=== PATIENT | female | born 1990 | race Caucasian/White ===

== ENCOUNTER 2018-03-05 17:44 | Emergency (ER) | payer OTHER ==
[~2018-03-05] VITALS: Ht 165.1 cm; Wt 54.4 kg
[2018-03-05 17:53] VITALS: BP 115/55
--- NOTE | 2018-03-05 17:55 | NUR ---
ARRIVAL PATIENT ARRIVED TO ED6 AMBULATORY, C/O OF DENTAL PAIN FOR THE PAST SEVERAL DAYS, PAIN WORSE TODAY, ATTEMPTED TO TREAT HERSELF AT HOME WITH IBUPROFEN, NO RELIEF, CAME TO THE ED FOR FURTHER EVAL.
[2018-03-05] MEDS ORDERED: ROCEPHIN IM IM STA (18:08)
[2018-03-05] MEDS ORDERED: LIDOCAINE 1% VIAL ONE (18:25)
[2018-03-05] MEDS ORDERED: ROCEPHIN ONE (18:25)
[2018-03-05] MEDS ORDERED: LIDOCAINE 1% VIAL SQ PRN (18:30)
--- NOTE | 2018-03-05 18:35 | NUR ---
LIDOCAINE: LIDOCAINE ADMINISTERED BY DR. BARBOZA.
--- NOTE | 2018-03-05 18:35 | ER.PDOC ---
General Chief Complaint: Toothache Stated Complaint: DENTAL ABSCESS Time seen by MD: 18:21 Source: patient Exam Limitations: no limitations History of Present Illness Initial Comments PT HAS HAD FRACTURED TEETH 4,5,6, FOR A LONG TIME, NOW HAS DEVELOPED PAIN AND SWELLING SUGGESTIVE OF GINGIVITIS Timing/Duration: gradual Context: fractured tooth Associated Symptoms: mild sore throat, jaw pain (R) Severity: mild Worsen By: nothing Allergies: Coded Allergies: No Known Allergies (Unverified , 03/05/18) Home Meds No Active Prescriptions or Reported Meds Past Medical History Medical History: no pertinent history Surgical History: no surgical history Social History Smoking: cigarettes Alcohol Use: none Drug Use: none Constitutional: no symptoms reported Eyes: no symptoms reported Ears: no symptoms reported Mouth: see HPI, pain, swelling (RIGHT UPPER TEETH) Throat: see HPI, pain Respiratory: no symptoms reported Cardiovascular: no symptoms reported Gastrointestinal: no symptoms reported Musculoskeletal: no symptoms reported Skin: no symptoms reported Neurological: no symptoms reported Physical Exam General Appearance: mild distress Head/Neck: neck nml inspection, trachea midline, (R) maxillary swelling, cervical lymphadenopathy (RIGHT SUBMANDIBULAR) Eyes: eyes nml inspection, PERRL Mouth: dental tenderness, gum swelling, widespread dental decay Throat: pharynx nml Respiratory: no resp. distress, lungs clear CVS: reg. rate & rhythm, heart sounds nml NEURO/PSYCH: oriented X3, mood/effect nml Additional Procedures Progress INFRAORITL NERVE BLOCK RIGHT; AFTER VERBAL CONSENT ONE ML OF 1%LIDOCAINE W/ EPI WAS INJECTED IN AREA OF THE INFRAORBITAL NERVE. PT REPORTS GOODRELIEF OF SYMPTOMS. Departure Time of Disposition: 18:39 Disposition: 01 HOME, SELF-CARE Impression: Primary Impression: Dental abscess Additional Impression: Fractured tooth Qualified Codes: S02.5XXS - Fracture of tooth (traumatic), sequela Condition: Improved Referrals: PCP,UNKNOWN (PCP) PRIMARY CARE PROVIDER Scripts No Active Prescriptions or Reported Meds Comments SEE DENTIST keshav, DISCUSSED POSSIBLE SEQUALAE Duration or Time Spent with Pa: JOSE HILL MD March 05, 2018 18:35
[2018-03-05 18:58] VITALS: BP 115/55
== END 2018-03-05 18:54 | disposition home or self-care (01) ==
LOC: ER 17:44
DX: S02.5XXA Fracture of tooth (traumatic), initial encounter for closed fracture (principal); K04.7 Periapical abscess without sinus; R59.0 Localized enlarged lymph nodes; F17.210 Nicotine dependence, cigarettes, uncomplicated; X58.XXXA Exposure to other specified factors, initial encounter; Y93.89 Activity, other specified; Y92.89 Other specified places as the place of occurrence of the external cause; Y99.8 Other external cause status
CPT/HCPCS: 64400; 96372; 99284; J0696; J2001

== ENCOUNTER 2018-11-15 15:51 | Emergency (ER) | payer OTHER ==
[~2018-11-15] VITALS: Ht 165.1 cm; Wt 54.4 kg
[2018-11-15 16:04] VITALS: BP 136/65
--- NOTE | 2018-11-15 16:05 | NUR ---
ARRIVAL PATIENT ARRIVED TO ED7 AMBULATORY, C/O OF DENTAL PAIN FOR THE PAST FEW DAYS, DID TAKE TYLENOL WITH NO RELIEF, CAME TO THE ED FOR FURTHER EVAL.
[2018-11-15] MEDS ORDERED: ZOFRAN ODT SL STA (16:17)
[2018-11-15] MEDS ORDERED: ZOFRAN ODT ONE (16:18)
--- NOTE | 2018-11-15 16:22 | ER.PDOC ---
General Chief Complaint: Toothache Stated Complaint: TOOTH PAIN Time seen by MD: 16:19 Source: patient Exam Limitations: no limitations History of Present Illness Initial Comments Toothache for past few days. Timing/Duration: gradual Context: fractured tooth Associated Symptoms: toothache Severity: moderate Prior symptoms/Treatment: Similar symptoms previous Allergies: Coded Allergies: Penicillins (Verified Allergy, Unknown, Hives, 11/15/18) Home Meds No Active Prescriptions or Reported Meds Past Medical History Medical History: no pertinent history Surgical History: Social History Smoking: cigarettes Alcohol Use: none Drug Use: none Constitutional: no symptoms reported Mouth: see HPI Throat: no symptoms reported Respiratory: no symptoms reported Cardiovascular: no symptoms reported Gastrointestinal: no symptoms reported Musculoskeletal: no symptoms reported All Other Systems: Reviewed and Negative Physical Exam General Appearance: alert, no distress Head/Neck: head nml inspection, neck nml inspection, trachea midline, no lymphadenopathy, thyroid nml Mouth: dental tenderness, widespread dental decay Throat: pharynx nml, voice nml, no airway problems Ears/Nose: nml inspection Respiratory: no resp. distress, lungs clear CVS: reg. rate & rhythm, heart sounds nml Abdomen: non-tender, no organomegaly Extremities: non-tender, ROM nml Skin Exam: Normal Color, Warm/Dry NEURO/PSYCH: oriented X3, mood/effect nml Departure Time of Disposition: 16:19 Disposition: 01 HOME, SELF-CARE Impression: Primary Impression: Dental infection Condition: Stable Referrals: PCP,UNKNOWN (PCP) PRIMARY CARE PROVIDER Additional Instructions: Clindamycin Diclofenac F/U with your Dentist this week Scripts No Active Prescriptions or Reported Meds Duration or Time Spent with Pa: 30 mins CHARLEE BARNARD MD Nov 15, 2018 16:22
[2018-11-15 16:23] VITALS: BP 136/65
== END 2018-11-15 16:28 | disposition home or self-care (01) ==
LOC: ER 15:51
DX: K04.7 Periapical abscess without sinus (principal); F17.210 Nicotine dependence, cigarettes, uncomplicated; Z88.0 Allergy status to penicillin
CPT/HCPCS: 99283; Q0162

== ENCOUNTER 2019-04-04 16:53 | Emergency (ER) | payer OTHER ==
[~2019-04-04] VITALS: Ht 165.1 cm; Wt 54.4 kg
--- NOTE | 2019-04-04 17:03 | ER.PDOC ---
General Chief Complaint: Requesting Medical Care Stated Complaint: MIGRAINE Time seen by MD: 17:03 Source: patient Exam Limitations: no limitations History of Present Illness Initial Comments Pt started headache yesterday, differs from her previous migraines in that this occipital, most are frontal, some nausea Timing/Duration: 24 hours Severity/Quality: severe, pressure, sharp Prior Headaches/Recent Trauma: no recent headache/trauma Associated Symptoms: nausea/vomiting, sensitivity to light Prior symptoms/Treatment: Similar symptoms previous Allergies: Coded Allergies: Penicillins (Verified Allergy, Unknown, Hives, 11/15/18) Home Meds No Active Prescriptions or Reported Meds Past Medical History Surgical History: Social History Drug Use: none Review of Systems Constitutional: no symptoms reported Eyes: no symptoms reported Ears, Nose, Mouth, Throat: no symptoms reported Respiratory: no symptoms reported Cardiovascular: no symptoms reported Gastrointestinal: no symptoms reported Genitourinary: no symptoms reported Musculoskeletal: no symptoms reported Skin: no symptoms reported Psychiatric/Neurological: see HPI Physical Exam General Appearance: No Apparent Distress, WD/WN Head/Eyes: eyes nml inspection, no facial swelling, no nystagmus, PERRL ENT: nml ENT inspection, pharynx nml Neck: nml inspection, Supple Cardiovascular: Normal Peripheral Pulses, Regular Rate, Rhythm, No Edema, No Gallop, No JVD, No Murmur Respiratory: chest non-tender, lungs clear, normal breath sounds, no respiratory distress, no accessory muscle use Gastrointestinal: Normal Bowel Sounds, No Organomegaly, No Pulsatile Mass, Non Tender, Soft Back: Normal Inspection, No CVA Tenderness, No Vertebral Tenderness Extremities: Normal Range of Motion, Non-Tender, Normal Inspection, No Pedal Edema, No Calf Tenderness, Normal Capillary Refill Psychiatric: Alert, Oriented x 3 Cranial Nerves: Normal Hearing, Normal Speech, PERRL Coordination/Gait: Normal Finger to Nose, Normal Gait Motor/Sensory: No Motor Deficit, No Sensory Deficit, No Pronator Drift, Negative Babinski's Sign Skin: Warm/Dry, Normal Color Lymphatic: No Adenopathy Results/Orders Results/Orders Orders - ANDRY CHU MD Ketorolac Tromethamine (Toradol) (04/04/19 17:30) Promethazine Hcl (Phenergan) (04/04/19 17:06) Ct Head Wo Contrast (04/04/19 17:06) Ketorolac Tromethamine (Toradol) (04/04/19 17:13) Promethazine Hcl (Phenergan) (04/04/19 17:13) Meperidine Hcl/Pf (Demerol) (04/04/19 18:05) Meperidine Hcl/Pf (Demerol) (04/04/19 18:23) Vital Signs Date Time Temp Pulse Resp B/P (MAP) Pulse Ox O2 Delivery O2 Flow Rate FiO2 04/04/19 17:08 98.0 95 14 118/60 (79) 100 Room Air 98.0 04/04/19 17:03 98.0 95 14 100 Room Air 98.0 04/04/19 17:03 98.0 95 14 98.0 Administered Medications Medications (Trade) Dose Ordered Sig/Angus Route PRN Reason Start Time Stop Time Status Last Admin Dose Admin Ketorolac Tromethamine (Toradol) 60 mg OT ONCE IM 04/04/19 17:30 04/04/19 17:31 DC 04/04/19 17:11 60 MG Meperidine HCl (Demerol) 50 mg STAT STAT IM 04/04/19 18:05 04/04/19 18:06 DC 04/04/19 18:26 50 MG Promethazine HCl (Phenergan) 25 mg STAT STAT IM 04/04/19 17:06 04/04/19 17:08 DC 04/04/19 17:13 25 MG Departure Time of Disposition: 18:30 Disposition: 01 HOME, SELF-CARE Impression: Primary Impression: Migraine Condition: Stable Patient Instructions: Migraine Headache, [id number] Referrals: PCP,UNKNOWN (PCP) PRIMARY CARE PROVIDER Scripts No Active Prescriptions or Reported Meds Duration or Time Spent with Pa: 20 ANDRY CHU MD Apr 04, 2019 17:03
[2019-04-04] MEDS ORDERED: PHENERGAN IM STA (17:06)
[2019-04-04 17:08] VITALS: BP 118/60
--- NOTE | 2019-04-04 17:10 | NUR ---
ARRIVAL PT ARRIVED TO ER AMBULATORY WITH COMPLAINT OF MIGRAINE X2 DAYS WITH VOMITTING. PT STATES SHE TOOK SOME XANAX LAST NIGHT FOR TREATMENT WITH NO RELIEF.
[2019-04-04] MEDS ORDERED: TORADOL ONE (17:13)
[2019-04-04] MEDS ORDERED: PHENERGAN ONE (17:13)
[2019-04-04] MEDS ORDERED: TORADOL IM ONE (17:30)
--- NOTE | 2019-04-04 17:41 | DIREP ---
PROCEDURE: CT HEAD BRAIN W/O CONTRAST TECHNIQUE:Contiguous 5.0 mm transaxial sections were obtained from the vertex to skull base without the use of intravenous contrast. COMPARISON:None. INDICATIONS:headache FINDINGS: VENTRICLES:Within normal limits. CEREBRUM:No acute intracranial hemorrhage or mass effect. Hernandez-white matter differentiation within normal limits. CEREBELLUM:Normal. BRAINSTEM:Normal. SKULL:Normal. SINUSES:Well pneumatized. OTHER:Negative. CONCLUSION: 1. No acute intracranial hemorrhage or mass effect. Dictated by: Serjio Núñez MD on 04/04/2019 at 05:40 PM
[2019-04-04] MEDS ORDERED: DEMEROL IM STA (18:05)
[2019-04-04] MEDS ORDERED: DEMEROL ONE (18:23)
[2019-04-04 18:45] VITALS: BP 98/50
[2019-04-04 19:15] VITALS: BP 98/50
== END 2019-04-04 18:56 | disposition home or self-care (01) ==
LOC: ER 16:53
DX: G43.909 Migraine, unspecified, not intractable, without status migrainosus (principal); Z79.899 Other long term (current) drug therapy; Z88.0 Allergy status to penicillin
CPT/HCPCS: 70450; 96372; 99284; J1885; J2175; J2550

== ENCOUNTER 2022-01-09 09:42 | Emergency (ER) | payer OTHER ==
[~2022-01-09] VITALS: Ht 165.1 cm; Wt 74.8 kg
[2022-01-09 09:52] VITALS: BP 132/80
--- NOTE | 2022-01-09 09:58 | NUR ---
ARRIVAL PATIENT ARRIVED TO ED6 AMBULATORY, C/O DENTAL PAIN FOR THE PAST 2 DAYS, ATTEMPTED TO TAKE OVER THE COUNTER PAIN MEDICATIONS WITH MINIMAL RELIEF, CAME TO THE ED FOR EVAL, VITAL SIGNS OBTAINED AND DOCTOR AKIL NOTIFIED OF PATIENT'S ARRIVAL.
[2022-01-09] MEDS ORDERED: TORADOL IM STA (10:18)
[2022-01-09] MEDS ORDERED: TORADOL ONE (10:19)
[2022-01-09 10:23] VITALS: BP 122/78
--- NOTE | 2022-01-09 10:24 | ER.PDOC ---
General Chief Complaint: Toothache Stated Complaint: TOOTHACHE Time seen by MD: 10:19 Source: patient Exam Limitations: no limitations History of Present Illness Initial Comments Tooth ache for 2 days. Timing/Duration: gradual Associated Symptoms: mod sore throat, jaw pain (R) Allergies: Coded Allergies: Penicillins (Verified Allergy, Unknown, Hives, 11/15/18) Home Meds No Active Prescriptions or Reported Meds Past Medical History Medical History: other Surgical History: Family History Significant Family History: no pertinent family hx Social History Smoking: non-smoker Alcohol Use: none Drug Use: none Constitutional: no symptoms reported Mouth: see HPI Respiratory: no symptoms reported Cardiovascular: no symptoms reported Gastrointestinal: no symptoms reported Musculoskeletal: no symptoms reported All Other Systems: Reviewed and Negative Physical Exam General Appearance: alert, no distress Head/Neck: head nml inspection, neck nml inspection, trachea midline, no lymphadenopathy, thyroid nml Mouth: dental tenderness, widespread dental decay (right upper jaw) Throat: pharynx nml, voice nml, no airway problems Respiratory: no resp. distress, lungs clear CVS: reg. rate & rhythm, heart sounds nml Abdomen: non-tender, no organomegaly Extremities: non-tender, ROM nml Skin Exam: Normal Color, Warm/Dry NEURO/PSYCH: oriented X3, mood/effect nml Results/Orders Results/Orders Vital Signs Date Time Temp Pulse Resp B/P (MAP) Pulse Ox O2 Delivery O2 Flow Rate FiO2 01/09/22 09:52 98.1 91 18 98 01/09/22 09:52 98.1 91 18 01/09/22 09:52 98.1 91 18 132/80 (97) 98 Room Air Progress Progress Patient received a Toradol shot. ER DEPART Departure Time of Disposition: 10:23 Disposition: 01 HOME / SELF CARE / HOMELESS Impression: Primary Impression: Infected dental caries Additional Impression: Dental infection Condition: Improved Referrals: PCP,UNKNOWN (PCP) PRIMARY CARE PROVIDER Additional Instructions: Clindamycin Diclofenac Follow-up with your dentist in 2 to 3 days Return to ED if worsening or concerns Scripts No Active Prescriptions or Reported Meds Duration or Time Spent with Pa: 10 min CHARLEE BARNARD MD Jan 09, 2022 10:24
== END 2022-01-09 10:32 | disposition home or self-care (01) ==
LOC: ER 09:42
DX: K04.7 Periapical abscess without sinus (principal); K02.9 Dental caries, unspecified; Z88.0 Allergy status to penicillin
CPT/HCPCS: 96372; 99283; J1885

== ENCOUNTER 2022-01-10 16:07 | Emergency (ER) | payer OTHER ==
[~2022-01-10] VITALS: Ht 165.1 cm; Wt 74.8 kg
[2022-01-10 16:30] VITALS: BP 114/84
[2022-01-10] MEDS ORDERED: LIDOCAINE HCL VISCOUS MM STA (16:31)
[2022-01-10] MEDS ORDERED: TORADOL IV STA (16:31)
[2022-01-10] MEDS ORDERED: MORPHINE SULFATE IV STA (16:31)
[2022-01-10] MEDS ORDERED: CLEOCIN 600 MG-D5W-GALAXY 50 ML IV STA (16:31)
--- NOTE | 2022-01-10 16:48 | ER.PDOC ---
LEO PATEL MD 01/10/22 1648: General Chief Complaint: Skin Rash/Abscess Stated Complaint: MOUTH ABSCESS Time seen by MD: 17:00 Source: patient, family Exam Limitations: no limitations History of Present Illness Initial Comments Painful face and hard palate, history of dental infections, was seen here yesterday and put on clindamycin came in for worsening pain, no feve,r occasional chills Timing/Duration: gradual Context: fractured tooth Associated Symptoms: fever/chills, toothache, facial pain, swollen face, jaw pain (R), jaw pain (L) Severity: moderate Worsen By: nothing Prior symptoms/Treatment: Similar symptoms previous, Recenly Seen, Treated by Doctor Allergies: Coded Allergies: Penicillins (Verified Allergy, Unknown, Hives, 11/15/18) Home Meds No Active Prescriptions or Reported Meds Past Medical History Medical History: other Surgical History: Social History Alcohol Use: none Drug Use: marijuana Reviewed Nursing Reviewed: Vital Signs, Abn. Noted All Other Systems: Reviewed and Negative Physical Exam General Appearance: alert, no distress Head/Neck: neck nml inspection, trachea midline, no lymphadenopathy, thyroid nml, pain on precuss of sinus, (R) maxillary swelling, (L) maxillary swelling 1 - egema, tenderness Eyes: eyes nml inspection, PERRL, no nystagmus Mouth: dental tenderness, gum swelling 1 - tender, edema 1 - swelling Respiratory: no resp. distress, lungs clear CVS: reg. rate & rhythm, heart sounds nml Abdomen: non-tender, no organomegaly Extremities: non-tender, ROM nml Skin Exam: Normal Color, Warm/Dry NEURO/PSYCH: oriented X3, mood/effect nml Results/Orders Results/Orders Orders - LEO PATEL MD Clindamycin Phosphate/D5w (Cleocin 600 M (01/10/22 16:31) Ketorolac Tromethamine (Toradol) (01/10/22 16:31) Lidocaine Hcl (Lidocaine Hcl Viscous) (01/10/22 16:31) 0.9 % Sodium Chloride (Ns 1000ml) (01/10/22 17:00) Morphine Sulfate (Morphine Sulfate) (01/10/22 16:31) Cbc With Auto Diff (01/10/22 16:39) Comprehensive Metabolic Panel (01/10/22 16:39) Blood Culture (01/10/22 16:39) Wound Culture & Gram Stain (01/10/22 16:39) C-Reactive Protein (01/10/22 16:39) Erythrocyte Sedimentation Rate (01/10/22 16:39) 0.9 % Sodium Chloride (Ns 1000ml) (01/10/22 16:50) Ketorolac Tromethamine (Toradol) (01/10/22 16:50) Clindamycin Phosphate/D5w (Cleocin 600 M (01/10/22 16:51) Lidocaine Hcl (Lidocaine Viscous) (01/10/22 16:51) Morphine Sulfate (Morphine Sulfate) (01/10/22 16:51) Hcg Qualitative Serum (01/10/22 17:04) Ct Soft Tissue Neck W Iv Con (01/10/22 17:21) Lidocaine Hcl/Epinephrine (Xylocaine 1%- (01/10/22 17:28) Tetracaine/Benzocaine/Butamben (Cetacain (01/10/22 17:28) Aripiprazole (Abilify) (01/10/22 21:00) Diclofenac Sodium (Voltaren) (01/10/22 17:30) Clindamycin Hcl (Cleocin) (01/10/22 21:00) Bupropion Hcl (Wellbutrin Xl) (01/11/22 09:00) Hydroxyzine (Atarax) (01/10/22 17:21) Vital Signs Date Time Temp Pulse Resp B/P (MAP) Pulse Ox O2 Delivery O2 Flow Rate FiO2 01/10/22 16:30 98.6 90 18 01/10/22 16:30 98.6 90 18 114/84 (94) 100 Room Air 01/10/22 16:30 98.6 90 18 100 Administered Medications Medications (Trade) Dose Ordered Sig/Angus Route PRN Reason Start Time Stop Time Status Last Admin Dose Admin Clindamycin Phosphate 50 ml @ 50 mls/hr Q8 STAT IV 01/10/22 16:31 01/10/22 17:30 DC 01/10/22 16:57 50 MLS/HR Ketorolac Tromethamine (Toradol) 30 mg STAT STAT IV 01/10/22 16:31 01/10/22 16:38 DC 01/10/22 16:57 30 MG Lidocaine HCl (Lidocaine HCl Viscous) 15 ml STAT STAT MM 01/10/22 16:31 01/10/22 16:38 DC 01/10/22 16:58 15 ML Morphine Sulfate (Morphine Sulfate) 2 mg STAT STAT IV 01/10/22 16:31 01/10/22 16:38 DC 01/10/22 16:58 2 MG Sodium Chloride 1,000 ml @ 0 mls/hr Q0M ONCE IV 01/10/22 17:00 01/10/22 17:01 DC 01/10/22 16:57 100 MLS/HR Laboratory Tests Test 01/10/22 16:45 White Blood Count 11.8 10^3/uL (4.5-11.0) H Red Blood Count 4.35 10^6/uL (4.00-5.20) Hemoglobin 12.6 g/dL (12.0-15.0) Hematocrit 39.3 % (36.0-46.0) Mean Corpuscular Volume 90.3 fL (78-100) Mean Corpuscular Hemoglobin 29.0 pg (26-34) Mean Corpuscular Hemoglobin Concent 32.1 g/dL (33-36.5) L Red Cell Distribution Width 15.9 % (11.5-14.5) H Platelet Count 286 10^3/uL (150-400) Mean Platelet Volume 8.6 fL (7.8-11.0) Neutrophils (%) (Auto) 62.6 % (41.0-85.0) Lymphocytes (%) (Auto) 23.1 % (24.0-44.0) L Monocytes (%) (Auto) 11.3 % (5.0-12.0) Neutrophils # (Auto) 7.4 10^3/uL (1.8-7.7) Lymphocytes # (Auto) 2.72 10^3/uL1 (1.0-4.8) Monocytes # (Auto) 1.3 10^3/uL (0.3-0.8) H Absolute Immature Granulocyte (auto 0.01 10^3 u/L (0-2) Absolute Eosinophils (auto) 0.3 10^3/uL (0.0-0.2) H Immature Granulocytes % 0.10 % (0.00-0.50) Eosinophils % 2.4 % (0.0-5.0) Basophils % 0.5 % (0.0-0.2) H Basophils # 0.1 10^3/uL (0.0-0.1) Erythrocyte Sedimentation Rate 27 mm/hr (0-20) H Sodium Level 136 mmol/L (132-145) Potassium Level 3.8 mmol/L (3.6-5.2) Chloride Level 101.0 mmol/L (96-109) Carbon Dioxide Level 25.5 mmol/L (20.0-32) Anion Gap 13.3 Blood Urea Nitrogen 13 mg/dL (7-18) Creatinine 0.97 mg/dL (0.59-1.40) Estimated GFR () 81.0 (>/=60) Est GFR (CKD-EPI)(Non-Afr Cambodian) 67.0 (>/=60) BUN/Creatinine Ratio 13.0 Glucose Level 101 mg/dL (70-110) Calcium Level 8.9 mg/dL (8.4-10.5) Total Bilirubin 0.5 mg/dL (0.2-1.0) Aspartate Amino Transferase (AST) 18 U/L (0-35) Alanine Aminotransferase (ALT) 31 U/L (12-78) Alkaline Phosphatase 92 U/L (50-136) C-Reactive Protein 10.94 mg/dL (0.00-5.00) H Total Protein 7.8 g/dL (6.4-8.2) Albumin 3.6 g/dL (3.4-5.0) Globulin 4.2 Albumin/Globulin Ratio 0.857 Serum HCG, Qualitative NEGATIVE (NEGATIVE) Progress Progress TO DR BARNARD ER DEPART Departure Disposition: 02 SHORT TERM HOSPITAL Impression: Primary Impression: Abscess, dental Additional Impression: Facial cellulitis Condition: Stable Referrals: PCP,UNKNOWN (PCP) PRIMARY CARE PROVIDER Scripts No Active Prescriptions or Reported Meds CHARLEE BARNARD MD 01/10/22 6048: General Chief Complaint: Skin Rash/Abscess Stated Complaint: MOUTH ABSCESS Time seen by : 19:00 Source: patient Exam Limitations: no limitations History of Present Illness Initial Comments Worsening dental infection and right facial swelling. Patient was seen here yesterday for dental caries with infection. No fever or chills. She was sent home on clindamycin. Timing/Duration: yesterday Associated Symptoms: toothache, swollen face (right) Severity: moderate Prior symptoms/Treatment: Similar symptoms previous, Recenly Seen, Treated by Doctor Allergies: Coded Allergies: Penicillins (Verified Allergy, Unknown, Hives, 11/15/18) Home Meds No Active Prescriptions or Reported Meds Past Medical History Medical History: no pertinent history Surgical History: no surgical history Family History Significant Family History: no pertinent family hx Social History Smoking: non-smoker Alcohol Use: none Drug Use: marijuana Constitutional: no symptoms reported Mouth: see HPI Respiratory: no symptoms reported Cardiovascular: no symptoms reported Gastrointestinal: no symptoms reported Musculoskeletal: no symptoms reported All Other Systems: Reviewed and Negative Physical Exam General Appearance: alert, no distress Head/Neck: head nml inspection, neck nml inspection, trachea midline, no lymphadenopathy, thyroid nml Mouth: dental tenderness (right upper molar with facial swelling and pus draning into the mouth), gum swelling Throat: pharynx nml, voice nml, no airway problems Respiratory: no resp. distress, lungs clear CVS: reg. rate & rhythm, heart sounds nml Abdomen: non-tender, no organomegaly Extremities: non-tender, ROM nml Skin Exam: Normal Color, Warm/Dry NEURO/PSYCH: oriented X3, mood/effect nml Progress Progress CT: Soft tissue thickening along the right paramedian aspect of the anterior hard palate may reflect potential abscess in the appropriate clinical setting. 2. Asymmetric prominence of the right tonsillar soft tissues with tiny foci of gas within the peritonsillar soft tissues are of indeterminate etiology as no discrete fluid component is identified to suggest peritonsillar abscess. 3. Additional findings as discussed above. Patient received clindamycin and meropenem. Talked to Dr. Hawthorne who is the hospitalist on admitting patient here but he is not comfortable since patient will need the services of ENT, patient transferred to [facility]. ER DEPART Departure Time of Disposition: 22:17 Disposition: 02 SHORT TERM HOSPITAL Impression: Primary Impression: Abscess, dental Additional Impression: Facial cellulitis Condition: Stable Referrals: PCP,UNKNOWN (PCP) PRIMARY CARE PROVIDER Scripts No Active Prescriptions or Reported Meds Comments Transfer to [facility] ED for Dr. Dumont Duration or Time Spent with Pa: 60 min LEO PATEL MD Jan 10, 2022 16:48 CHARLEE BARNARD MD Jan 10, 2022 22:18
[2022-01-10] MEDS ORDERED: TORADOL ONE (16:50)
[2022-01-10] MEDS ORDERED: NS 1000ML 1,000 ML ONE (16:50)
[2022-01-10] MEDS ORDERED: CLEOCIN 600 MG-D5W-GALAXY 50 ML IV ONE (16:51)
[2022-01-10] MEDS ORDERED: LIDOCAINE VISCOUS ONE (16:51)
[2022-01-10] MEDS ORDERED: MORPHINE SULFATE ONE (16:51)
[2022-01-10 16:53] LABS: BASOPHIL # 0.1 10^3/uL (0.0-0.1); BASOPHIL % 0.5 % (0.0-0.2); EOSINOPHIL # 0.3 10^3/uL (0.0-0.2); EOSINOPHIL % 2.4 % (0.0-5.0); LYMPHOCYTES # 2.72 10^3/uL1 (1.0-4.8); LYMPHOCYTES % 23.1 % (24.0-44.0); MONOCYTES # 1.3 10^3/uL (0.3-0.8); MONOCYTES % 11.3 % (5.0-12.0); NEUTROPHIL # 7.4 10^3/uL (1.8-7.7); NEUTROPHILS % 62.6 % (41.0-85.0); PLATELET COUNT 286 10^3/uL (150-400); RED CELL DISTRIBUTION WIDTH 15.9 % (11.5-14.5)
[2022-01-10] MEDS ORDERED: NS 1000ML 1,000 ML IV ONE (17:00)
[2022-01-10 17:11] LABS: CARBON DIOXIDE 25.5 mmol/L (20.0-32)
[2022-01-10] MEDS ORDERED: ATARAX PO STA (17:21)
[2022-01-10] MEDS ORDERED: CETACAINE SPRAY TP ONE (17:28)
[2022-01-10] MEDS ORDERED: XYLOCAINE 1%-EPI 1:100,000 ONE (17:28)
[2022-01-10] MEDS ORDERED: VOLTAREN PO PRN (17:30)
--- NOTE | 2022-01-10 18:54 | DIREP ---
PROCEDURE:CT SOFT TISSUE NECK W/CONTRAST COMPARISON:None. INDICATIONS:abscess hard palate TECHNIQUE:CT images were created with intravenous contrast material. Sagittal and coronal reconstructions are performed. FINDINGS: NASOPHARYNX:Fossae of Rosenmuller and torus tubarius are symmetric. ORAL CAVITY:There does appear to be soft tissue thickening along the right paramedian aspect of the anterior hard palate which may reflect potential abscess in the appropriate clinical setting. The base of the tongue appears fairly symmetric bilaterally. OROPHARYNX:Asymmetric prominence of the right peritonsillar soft tissues with tiny foci of gas within the peritonsillar soft tissues. HYPOPHARYNX:No abnormal retropharyngeal soft tissue thickening or fluid collections are identified. LARYNX:The vocal cords are symmetric and without appreciable mass. SINUSES:Minimal mucosal thickening within the inferior aspect of the right maxillary sinus. NECK GLANDS:The parotid and submandibular glands are fairly symmetric bilaterally. The thyroid gland appears grossly unremarkable. LYMPH NODES:Nonspecific small bilateral cervical lymph nodes are present. VASCULATURE:Grossly unremarkable. BONES:No acute abnormality. CONCLUSION: 1. Soft tissue thickening along the right paramedian aspect of the anterior hard palate may reflect potential abscess in the appropriate clinical setting. 2. Asymmetric prominence of the right tonsillar soft tissues with tiny foci of gas within the peritonsillar soft tissues are of indeterminate etiology as no discrete fluid component is identified to suggest peritonsillar abscess. 3. Additional findings as discussed above. Dictated by: Rogelio Sam M.D. On 01/10/2022 at 06:43 PM
[2022-01-10] MEDS ORDERED: MERREM 500 MG in NS 100ML 100 ML IV STA (19:38)
[2022-01-10] MEDS ORDERED: NS 100ML 100 ML IV ONE (19:44)
[2022-01-10] MEDS ORDERED: CLEOCIN PO SCH (21:00)
[2022-01-10] MEDS ORDERED: ABILIFY PO SCH (21:00)
--- NOTE | 2022-01-10 22:27 | NUR ---
REPORT nurse to nurse report given to [facility] ER.
[2022-01-10 23:15] VITALS: BP 111/72
[2022-01-11] MEDS ORDERED: WELLBUTRIN XL PO SCH (09:00)
== END 2022-01-10 23:15 | disposition short-term general hospital (02) ==
LOC: ER 16:07
DX: K12.2 Cellulitis and abscess of mouth (principal); K08.89 Other specified disorders of teeth and supporting structures; Z20.822 Contact with and (suspected) exposure to COVID-19; Z88.0 Allergy status to penicillin
CPT/HCPCS: 36415; 70491; 80053; 84703; 85025; 85651; 86140; 87040 ×2; 87426; 96365; 96366; 96367; 96375; 99285; J1885; J3490; J7030; Q9965

== ENCOUNTER 2022-06-10 14:12 | Emergency (ER) | payer SELFPAY ==
[~2022-06-10] VITALS: Ht 165.1 cm; Wt 72.6 kg
[2022-06-10 14:12] VITALS: BP 115/64
--- NOTE | 2022-06-10 14:12 | NUR ---
ARRIVAL PT PRESENTS TO THE ED VIA AMBULATORY WITH C/O LEFT WRIST LACERATION, PT STATES SHE WAS AT WORK AND WAS OPENING A BOX AND THE BOX SLIPPED AND PT STATES SHE CUT HER WRIST WITH A WOOD LAST MAKER. PT HAS AN APPROXIT 2 CM LACTERATION, NO BLEEDING AT THIS TIME. PT VITALS OBTAINED, PT STABLE, NOTIFIED OF PT ARRIVAL.
--- NOTE | 2022-06-10 15:01 | ER.PDOC ---
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 Is 2 cm long, very superficial. She is already washed out. Bleeding controlled Occurred: just prior to arrival Recent Injury: Yes Where: work Allergies: Coded Allergies: Penicillins (Verified Allergy, Unknown, Hives, 11/15/18) Home Meds No Active Prescriptions or Reported Meds Past Medical History Medical History: no pertinent history Surgical History: no surgical history Social History Alcohol Use: none Drug Use: marijuana Review of Systems All Other Systems: Reviewed and Negative Physical Exam General Appearance: alert Upper Extremity: tenderness (2 cm superficial linear laceration, clean) Vascular: no vascular compromise Neuro/Psych: sensation nml, motor nml Central Exam: oriented X3 EENT: eyes nml inspection Neck/Back: nml inspection Respiratory: no resp distress CVS: reg rate & rhythm Abdomen: non-tender ED LACERATION WOUND REPAIR # of Wounds/Lacerations Presen: 1 Wound Location & Length (Requi: L wrist Wound Length (cm): 2 Wound cleaned: betadine Distal NVT: neuro intact, vasc intact Anesthesia type: Not Applicable/None Wound's Depth, Shape: superficial, linear Wound Explored: clean Wound Debrided: minimal Wound Repaired With: dermabond Results/Orders Results/Orders Vital Signs Date Time Temp Pulse Resp B/P (MAP) Pulse Ox O2 Delivery O2 Flow Rate FiO2 06/10/22 14:12 98.0 96 18 100 06/10/22 14:12 98.0 96 18 115/64 (81) 100 Room Air* 0 21 06/10/22 14:12 98.0 96 18 Progress Progress Wound closely approximated with Dermabond, no bleeding, she will follow-up as needed ER DEPART Departure Time of Disposition: 15:00 Disposition: 01 HOME / SELF CARE / HOMELESS Impression: Primary Impression: Laceration of left wrist Condition: Improved Referrals: PCP,UNKNOWN (PCP) PRIMARY CARE PROVIDER Scripts No Active Prescriptions or Reported Meds Duration or Time Spent with Pa: CURTIS Mayfield MD Jun 10, 2022 15:01
[2022-06-10 15:22] VITALS: BP 102/53
== END 2022-06-10 15:22 | disposition home or self-care (01) ==
LOC: ER 14:12
DX: S61.512A Laceration without foreign body of left wrist, initial encounter (principal); F12.90 Cannabis use, unspecified, uncomplicated; W45.8XXA Other foreign body or object entering through skin, initial encounter; Y93.89 Activity, other specified; Y92.89 Other specified places as the place of occurrence of the external cause; Y99.0 Civilian activity done for income or pay; Z88.0 Allergy status to penicillin
CPT/HCPCS: 99282; 12001; A4649

== ENCOUNTER 2024-08-20 17:32 | Emergency (ER) | payer SELFPAY ==
[~2024-08-20] VITALS: Ht 165.1 cm; Wt 56.7 kg
[2024-08-20 17:40] VITALS: BP 105/48; PULSE 84; RESP 16; TEMP 98.7; O2SAT 98
[2024-08-20] MEDS ORDERED: TORADOL ONE (17:57)
[2024-08-20] MEDS ORDERED: CLEOCIN ONE (17:57)
[2024-08-20] MEDS: TORADOL IM STA (18:01)
[2024-08-20] MEDS: CLEOCIN PO STA (18:01)
== END 2024-08-20 18:06 | disposition home or self-care (01) ==
LOC: ER 17:32
DX: K04.7 Periapical abscess without sinus (principal); F17.210 Nicotine dependence, cigarettes, uncomplicated; F12.90 Cannabis use, unspecified, uncomplicated; Z88.0 Allergy status to penicillin
CPT/HCPCS: 99283; 96372; J1885; J8499